=== PATIENT | male | born 1985 | race African-American/Black ===

== ENCOUNTER 2018-10-17 19:49 | Emergency (ER) | payer OTHER ==
[~2018-10-17] VITALS: Ht 195.6 cm; Wt 68.0 kg
[~2018-10-17 19:49] MED LIST: CIPRO250 M1 PO; HYDROCODONE-AP1 EAC6 PO; NOHOMEMEDICATIONS; OMEPRAZOLE 20 M20 MG PO; PREDNISONE50 MG PO; PROVENTIL HFA6.7 G1 INH; ZOFRAN4 MG PO
[2018-10-17 21:17] VITALS: BP 133/67
== END 2018-10-17 21:17 | disposition home or self-care (01) ==
LOC: ER 19:49
DX: R10.9 Unspecified abdominal pain (principal); R19.7 Diarrhea, unspecified